=== PATIENT | female | born 1970 | race Hispanic/Latino ===

== ENCOUNTER 2020-02-03 11:48 | Emergency (ER) | payer OTHER ==
[2020-02-03 12:47] LABS: BASOPHILS % (AUTO) 0.8 % (0.0-5.0); LYMPHOCYTES % (AUTO) 32.5 % (21.0-51.0); MEAN CORPUSCULAR HEMOGLOBIN 31.4 pg (27.0-33.0); MEAN CORPUSCULAR HGB CONC 34.5 g/dL (32.0-36.0); MEAN CORPUSCULAR VOLUME 91.1 fL (79-99); MONOCYTES % (AUTO) 10.5 % (3.0-13.0); PLATELET COUNT (AUTO) 235 K/uL (130-400); RED BLOOD CELL COUNT(AUTO) 4.39 MIL/uL (4.00-5.50); RED CELL DISTRIBUTION WIDTH 12.1 % (11.0-15.5); WHITE BLOOD COUNT (AUTO) 5.1 K/uL (4.8-10.8)
[2020-02-03 12:56] LABS: CREATININE 0.8 mg/dL (0.5-1.5); POTASSIUM 3.9 mmol/L (3.5-5.1)
[2020-02-03 13:01] LABS: ALBUMIN 3.4 g/dL (3.5-5.0); BILIRUBIN,TOTAL 0.5 mg/dL (0.2-1.0); TOTAL PROTEIN, SERUM 7.7 g/dL (6.0-8.3)
[2020-02-03 13:05] LABS: RAPID GROUP A STREP NEGATIVE (NEGATIVE)
== END 2020-02-03 13:53 | disposition home or self-care (01) ==
LOC: EDH 11:48
DX: U07.1 COVID-19 (principal); R03.0 Elevated blood-pressure reading, without diagnosis of hypertension; E11.9 Type 2 diabetes mellitus without complications; Z90.710 Acquired absence of both cervix and uterus; Z98.890 Other specified postprocedural states
CPT/HCPCS: 36415; 71045; 80053; 85025; 87426; 87804; 87880

== ENCOUNTER 2025-01-18 13:20 | Emergency (ER) | payer BC, OTHER ==
[~2025-01-18] VITALS: Ht 157.5 cm; Wt 87.1 kg
--- NOTE | 2025-01-18 13:30 | ERN ---
ED Note History of Present Illness Stated Complaint: LT NECK AND THROAT PAIN Chief Complaint: Neck Pain Time Seen by MD: 13:23 Dictation: PATIENT IS A 54-YEAR-OLD FEMALE HERE WITH COMPLAINTS OF A LEFT-SIDED HEADACHE SHE HAD ONSET TODAY. NO FEVER NO CHILLS NO NAUSEA VOMITING. SHE STATES SHE HAS A CHRONIC HISTORY OF GLOSSOPHARYNGEAL PAIN AND NORMALLY SEES A NEUROLOGIST [place] SHE HAS NOT SEEN HIM IN SEVERAL MONTHS. SHE HAS A PRIMARY CARE DOCTOR ANDRES WHO NORMALLY TREATS HER HOWEVER SHE CAME TO THE EMERGENCY ROOM. SHE DROVE HERSELF TO THE EMERGENCY ROOM SHE IS NEUROLOGICALLY INTACT [facility] IS 0 Allergies: Coded Allergies: No Known Drug Allergies (Unverified Allergy, Unknown, 02/03/20) Past Medical History Past Medical History: Diabetes-Type II Surgical History: Other History: Not Applicable RN Note Reviewed/Agreed w/PFSH: Yes Review of System Dictation CONSTITUTIONAL: NEGATIVE EXCEPT FOR HPI HEAD/FACE: NEGATIVE EXCEPT FOR HPI EENT: NEGATIVE EXCEPT FOR HPI RESPIRATORY: NEGATIVE EXCEPT FOR HPI GASTROINTESTINAL/ABDOMINAL: NEGATIVE EXCEPT FOR HPI GENITOURINARY: NEGATIVE EXCEPT FOR HPI MUSCULOSKELETAL: NEGATIVE EXCEPT FOR HPI INTEGUMENTARY: NEGATIVE EXCEPT FOR HPI NEUROLOGICAL/PSYCH: NEGATIVE EXCEPT FOR HPI LEFT FACIAL AND TEMPORAL HEADACHE HEMATOLOGIC/LYMPHATIC: NEGATIVE EXCEPT FOR HPI ALL SYSTEMS NEGATIVE, EXCEPT NOTED ABOVE. 13 POINT REVIEW OF SYSTEMS ASSESSED AND ALL NEGATIVE EXCEPT FOR ABOVE. Initial Vital Sign VS Vital Signs Date Time Temp Pulse Resp B/P (MAP) Pulse Ox O2 Delivery O2 Flow Rate FiO2 01/18/25 13:22 98.8 90 20 113/80 97 Room Air 0 Physical Exam Dictation VITAL SIGNS REVIEWED GENERAL APPEARANCE: ALERT, ORIENTED X 3, MODERATE ACUTE DISTRESS, WELL DEVELOPED, NOURISHED. HEAD AND FACE: NON-TRAUMATIC. EYES: PERRL, PINK CONJUNCTIVAS, EYELID NO TRAUMA, ANTERIOR CHAMBER WITH ARCUS SENILIS. EARS: PINNAS INTACT AND NO SIGNS OF TRAUMA OR ERYTHEMA EAR CANALS CLEAR AND NO DISCHARGE TM NO ERYTHEMA NOSE: NO DISCHARGE, NO BLEEDING. OROPHARYNX: MOUTH NORMAL, TONGUE PINK, PHARYNX CLEAR,NO ERYTHEMA, TONSILS NO EXUDATES, NO ABSCESSES NOTED, MUCOUS MEMBRANE MOIST NECK: SUPPLE, NON-TENDER, NO THYROMEGALY, NO MASSES, NO JVD, NO BRUITS BREAST:DEFERRED CHEST:NO TENDERNESS, NO CREPITUS, NO PARADOXICAL MOVEMENT, NO RETRACTIONS LUNGS:CLEAR, WELL-VENTILATED, SYMMETRIC, NO RALES, NO WHEEZING, NO RHONCHI, NO STRIDOR, GOOD BREATH SOUNDS BILATERALLY HEART: REGULAR RATE, REGULAR RHYTHM, NO MURMUR, NO GALLOPS VASCULAR: NO PERIPHERAL EDEMA, ABDOMEN: SOFT, POSITIVE BOWEL SOUNDS, NONDISTENDED, NO GUARDING, NONTENDER, NO REBOUND, NO MASSES NO HEPATOMEGALY, NO SPLENOMEGALY, NO BLISS'S SIGN, NO HERNIAS. RECTAL: DEFERRED GENITAL: DEFERRED NEUROLOGICAL: NORMAL SPEECH, MOTOR FUNCTION INTACT, SENSORY FUNCTION INTACT [facility] IS 0 MUSCULOSKELETAL: NECK NONTENDER, FULL RANGE OF MOTION, BACK NONTENDER, FULL RANGE OF MOTION, EXTREMITIES: NONTENDER, FULL RANGE OF MOTION SKIN: COLOR PINK, DRY, NO TURGOR, NO RASH, NO LACERATIONS, NO ABRASIONS, NO CONTUSIONS. LYMPHATIC: DEFERRED Results (Laboratory/Radiology) Labs Reviewed?: Yes ED Course ED Course Orders Procedure Category Date Status Time Acetaminophen 500mg PHA 01/18/25 Logged Tab (Tylenol 500mg T 13:30 Ketorolac 60mg/2ml PHA 01/18/25 Logged (Toradol 60mg/2ml) 13:30 Vital Signs Date Time Temp Pulse Resp B/P (MAP) Pulse Ox O2 Delivery O2 Flow Rate FiO2 01/18/25 13:22 98.8 90 20 113/80 97 Room Air 0 1330/NO LABS OR IMAGING INDICATED. WE WILL TREAT PATIENT FOR PAIN AND HAVE HER SEE HER PRIMARY CARE DOCTOR TODAY, DR.URIBE NARVAEZ Medical Decision Making MDM MEDICAL DECISION-MAKING BASED ON EMPIRIC TREATMENT FOR AN ACUTE HEADACHE. PATIENT HAS NO DESIGNATED PAYROLL COORDINATOR AND [facility] IS 0. SHE WILL BE GIVEN TORADOL AND ACETAMINOPHEN TOLD SEE HER PRIMARY CARE DOCTOR, MANAGEMENT TODAY. DX & DISP Disposition: Discharge Departure Impression: Primary Impression: Acute headache Condition: Stable Additional Instructions: FOLLOW-UP WITH PRIMARY CARE PROVIDER IN 1 TO 2 DAYS. TAKE MEDICATIONS DIRECTED HERE IN THE EMERGENCY ROOM. OKAY TO CONTINUE HOME MEDICATIONS UNLESS OTHERWISE DISCUSSED DURING YOUR VISIT IN THE EMERGENCY ROOM TODAY. RETURN TO YOUR NEAREST EMERGENCY ROOM IF SYMPTOMS WORSEN OR IF THERE IS NO IMPROVEMENT. CALL 911 IF YOU NEED IMMEDIATE ASSISTANCE. TAKE TYLENOL OR MOTRIN [id number] NEEDED AND IF NO CONTRAINDICATIONS ARE PRESENT. INCREASE ORAL HYDRATION. A WOUND CULTURE OR URINE CULTURE WAS ORDERED HERE IN THE EMERGENCY ROOM DEPARTMENT PLEASE FOLLOW-UP WITH PRIMARY CARE PROVIDER AND ADVISE THEM TO GET REPEAT PORTS FROM OUR FACILITY. IF YOU HAD ANY JUAN FRANCISCO WRAP/SPLINTS THAT WERE APPLIED HERE, PLEASE DO NOT REMOVE THEM UNTIL YOU SEE YOUR PRIMARY CARE OR SPECIALTY. SEE YOUR PRIMARY CARE DOCTOR TODAY FOR FOLLOW UP AND MANAGEMENT OF YOUR CHRONIC PAIN. Referrals: SELF,REFERRAL (PCP) Time of Disposition: 13:30 I have reviewed the case, and I agree with, Diagnosis and Plan LEILANI MEREDITHP Jan 18, 2025 13:30
[2025-01-18 13:55] VITALS: BP 119/84; PULSE 82; RESP 20; TEMP 98.8; O2SAT 97
== END 2025-01-18 14:10 | disposition home or self-care (01) ==
LOC: EDH 13:20
DX: R51.9 Headache, unspecified (principal); M54.2 Cervicalgia; E11.9 Type 2 diabetes mellitus without complications
CPT/HCPCS: 99284; 96372; J1885